=== PATIENT | female | born 2000 | race Caucasian/White ===

== ENCOUNTER → 2020-11-20 | Outpatient (CLI) | payer OTHER ==
[~2020-11-20] MED LIST: IBUPROFEN600 MG PO
== END ==
LOC: RAD 07:28
DX: R10.84 Generalized abdominal pain (principal); R14.3 Flatulence
CPT/HCPCS: 74019

== ENCOUNTER 2021-01-28 19:02 | Emergency (ER) | payer OTHER ==
[~2021-01-28 19:02] MED LIST changes: -NAPROSYN500 MG PO
== END 2021-01-28 19:45 | disposition left against medical advice (07) ==
LOC: ER1 19:02
DX: Z53.21 Procedure and treatment not carried out due to patient leaving prior to being seen by health care provider (principal)

== ENCOUNTER → 2021-01-28 | Outpatient (CLI) | payer OTHER ==
[~2021-01-28] MED LIST changes: +NAPROSYN500 MG PO
== END ==
LOC: US 01-26 13:30
DX: N63.10 Unspecified lump in the right breast, unspecified quadrant (principal)
CPT/HCPCS: 76641-RT

== ENCOUNTER → 2021-03-03 | Outpatient (CLI) | payer OTHER | LOC: EXRD 10:11 | DX: R10.31 Right lower quadrant pain (principal); R10.2 Pelvic and perineal pain | CPT/HCPCS: 76700; 76856 ==

== ENCOUNTER → 2021-03-18 | Outpatient (CLI) | payer OTHER | LOC: KOH-I 03-11 16:00 | DX: R10.2 Pelvic and perineal pain (principal) | CPT/HCPCS: 74176 ==

== ENCOUNTER 2021-03-22 15:21 | Emergency (ER) | payer OTHER ==
[2021-03-22] MEDS ORDERED: NAPROSYN500 MG PO (16:30)
== END 2021-03-22 16:35 | disposition home or self-care (01) ==
LOC: ER1 15:21
DX: S93.401A Sprain of unspecified ligament of right ankle, initial encounter (principal); X50.1XXA Overexertion from prolonged static or awkward postures, initial encounter; Y92.009 Unspecified place in unspecified non-institutional (private) residence as the place of occurrence of the external cause
CPT/HCPCS: 73610; 99283